=== PATIENT | male | born 1990 | race Caucasian/White ===

== ENCOUNTER 2024-02-13 16:39 | Emergency (ER) | payer MEDICAID ==
[~2024-02-13] VITALS: Ht 180.3 cm; Wt 83.9 kg
[2024-02-13 17:00] VITALS: BP 124/81; TEMP 98.3; O2SAT 97
== END 2024-02-13 17:46 | disposition home or self-care (01) ==
LOC: ER 16:43
DX: S61.421A Laceration with foreign body of right hand, initial encounter (principal); F19.10 Other psychoactive substance abuse, uncomplicated; Z88.0 Allergy status to penicillin; W26.0XXA Contact with knife, initial encounter; Y93.89 Activity, other specified; Y92.090 Kitchen in other non-institutional residence as the place of occurrence of the external cause; Y99.8 Other external cause status